=== PATIENT | female | born 1990 | race Caucasian/White ===

== ENCOUNTER → 2021-10-19 15:32 | Outpatient (CLI) | payer OTHER, SELFPAY ==
--- NOTE | ~2021-10-19 | XR_ITS ---
EXAMINATION: XR cervical spine 4-5V DATE: 10/19/2021 15:58 INDICATION: Chronic neck pain. TECHNIQUE: 4 views of cervical spine including upright views were obtained. COMPARISON: None. FINDINGS: Bone alignment is normal. Vertebral body heights and intervertebral disc heights are normal . The facet joints are unremarkable. No central canal stenosis or prevertebral soft tissue swelling. IMPRESSION: 1. No etiology for the patient's symptoms. Reviewed, dictated and finalized at location A. SPORTATION SPECIALIST
== END ==
PROVIDERS: PCP Physician Assistant; Visit Provider Physician Assistant
DX: M54.2 Cervicalgia (principal); G89.29 Other chronic pain
CPT/HCPCS: 72050

== ENCOUNTER 2022-05-04 06:57 | Outpatient (CLI) | payer OTHER, SELFPAY ==
[2022-05-04 07:19] LABS: Basophils Percent Auto 0.5 % (0.2-1.2); Eosinophils Absolute Auto 0.2 K/mm3 (0-0.3); Eosinophils Percent Auto 2.7 % (0-4.4); Hematocrit 39.5 % (37.0-47.0); Hemoglobin 12.6 g/dL (12.0-15.0); Immature Granulocyte Absolute 0.02 K/mm3 (0.00-0.031); Immature Granulocyte Percent A 0.3 % (0-0.5); Lymphocytes Absolute Auto 2.36 K/mm3 (0.9-3.2); Lymphocytes Percent Auto 37.8 % (18.3-44.2); Mean Corpuscular HGB Conc 31.9 g/dl (32-36); Mean Corpuscular Hemoglobin 28.8 pg (26-34); Mean Corpuscular Volume 90.4 fl (80-100); Mean Platelet Volume 9.6 fl (7.4-10.4); Monocytes Absolute Auto 0.4 K/mm3 (0.1-0.6); Monocytes Percent Auto 5.9 % (2.6-8.5); Neutrophils Absolute Auto 3.3 K/mm3 (1.3-6.7); Neutrophils Percent Auto 52.8 % (45.5-73.1); Platelet Count Result 240 k/mm3 (150-375); Red Blood Count 4.37 M/mm3 (4.2-5.4); Red Cell Distribution Width 12.6 % (11.5-14.5); White Blood Count 6.3 K/mm3 (4.5-10.0)
[2022-05-04 07:23] LABS: Alanine Aminotransferase 14 U/L (6-35); Albumin Level 4.4 g/dL (3.5-5.1); Alkaline Phosphatase 68 U/L (38-126); Anion Gap 7 mmol/L (8-16); Aspartate Amino Transferase 19 U/L (14-36); Bilirubin,Total 0.5 mg/dL (0.2-1.3); Blood Urea Nitrogen 7 mg/dL (7-17); Calcium 8.8 mg/dL (8.4-10.2); Carbon Dioxide 26 mmol/L (22-30); Chloride 106 mmol/L (98-107); Cholesterol 180 mg/dL (0-200); Estimated Glomerular Filt Rate > 60; Glucose 92 mg/dL (65-110); HDL Direct 40 mg/dL; Potassium 4.1 mmol/L (3.4-5.0); Sodium 139 mmol/L (137-145); Triglycerides 91 mg/dL (<150)
[2022-05-04 07:34] LABS: LDL Cholesterol Direct 96 mg/dL
[2022-05-04 07:55] LABS: Vitamin D 25 Hydroxy 54.5 ng/mL
== END 2022-05-04 06:58 | disposition home or self-care (01) ==
LOC: ANHLAB 06:59
PROVIDERS: PCP Clinical Nurse Specialist; Visit Provider Clinical Nurse Specialist
DX: Z13.228 Encounter for screening for other metabolic disorders (principal); Z13.220 Encounter for screening for lipoid disorders; K59.00 Constipation, unspecified; E55.9 Vitamin D deficiency, unspecified
CPT/HCPCS: 36415; 80053; 80061; 82306; 84443; 85025

== ENCOUNTER → 2022-05-09 14:42 | Outpatient (CLI) | payer OTHER, SELFPAY ==
--- NOTE | ~2022-05-09 | US_ITS ---
EXAMINATION: US soft tissue head and neck DATE: 05/09/2022 15:04 INDICATION: Lump on left side of neck. Dysphagia. Left neck pain. TECHNIQUE: Multiple grayscale and Doppler ultrasound images of the neck were obtained. COMPARISON: Thyroid ultrasound 10/16/2016 FINDINGS: There are normal lymph nodes in left neck in the patient's area of concern. In the left thy roid isthmus, there is a chronic 10 mm mixed solid and cystic, hypoechoic, wider than tall nodule wit h smooth margin without echogenic foci (TI-RADS TR3). IMPRESSION: 1. Normal lymph nodes in left neck. 2. Thyroid nodule, likely not clinically significant. No follow-up is needed. Reviewed, dictated and finalized at location A.
== END ==
PROVIDERS: PCP Clinical Nurse Specialist; Visit Provider Clinical Nurse Specialist
DX: R22.1 Localized swelling, mass and lump, neck (principal)
CPT/HCPCS: 76536

== ENCOUNTER 2022-05-30 12:32 | Day surgery (SDC) | payer OTHER, SELFPAY ==
[2022-05-12 14:05] VITALS: BMI 26.3
[2022-05-15 14:50] VITALS: BMI 25.9
[2022-05-30 12:50] VITALS: BMI 25.9
[2022-05-30 12:51] VITALS: BP 109/82; PULSE 80; RESP 16; TEMP 36.8; O2SAT 100
--- NOTE | 2022-05-30 13:08 | P.PNAN_ITS ---
Anes - Initial Pre Proc Eval Procedure: Operation Date: 05/30/22 14:15 Proposed Procedures p Diagnostic Colonoscopy - Robb Avalos MD Date/Time: 05/30/22 13:08 Surgeon: Robb Avalos MD Pre Op Diagnosis: Change in Bowel Habits Patient Data Age: 31 Gender: F Height: 1.68 m Weight: 73 kg Last Vital Signs Temp 36.8 C 05/30/22 12:51 Pulse 80 05/30/22 12:51 Resp 16 05/30/22 12:51 BP 109/82 05/30/22 12:51 Pulse Ox 100 05/30/22 12:51 O2 Del Method Room Air 05/30/22 12:51 Allergies Allergy/AdvReac Type Severity Reaction Status Date / Time cat dander Allergy Mild Unknown Verified 05/30/22 12:48 grass pollen-[place], Allergy Mild Unknown Verified 05/30/22 12:48 standard No Known Drug Allergies Allergy Unknown Verified 05/30/22 12:48 Home Medications Medication Instructions Recorded Confirmed Type loratadine 10 mg tablet (Claritin) 10 mg PO DAILY 05/03/22 05/30/22 History valacyclovir 1 gram tablet 2,000 mg PO Q12H #30 tabs 05/04/22 05/30/22 Rx psyllium seed (sugar) oral powder 1 tbsp PO BID 05/10/22 05/30/22 History (Metamucil (sugar) oral powder) acidophilus 100 million 1 cap PO DAILY 05/15/22 05/30/22 History cell-pectin, citrus 10 mg capsule Patient hx anesthesia problems: none Family hx anesthesia problems: none Results Review: All pre-operative results and documents have been reviewed as part of the pre- operative evaluation. 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 Informed Consent: The patient's anesthetic plan and its attendant risks and benefits were discussed with the patient/family/POA. Questions were solicited and answers provided to the satisfaction of the patient/family/POA.
--- NOTE | 2022-05-30 13:26 | WPDHPUPDATE1 ---
History and Physical Update Update Date/Time: 05/30/22 13:26 History and Physical has been reviewed, including an updated exam of the patient. There are NO changes in the patient's condition. Risks, benefits, and alternatives have been discussed and questions answered. Patient agrees to proceed with procedure.
[2022-05-30 13:40] VITALS: BP 94/59; PULSE 88; RESP 18; TEMP 36.6; O2SAT 100
[2022-05-30] MEDS: LACTATED RINGERS 1,000 ML 150 ML IV CONT (13:45)
--- NOTE | 2022-05-30 13:45 | WPDANESPN ---
Anes - Prog Note Post-Op Date/Time: 05/30/22 13:45 Cardiovascular status: normal Respiratory status: normal Airway patency: baseline Mental status: baseline Post-Op hydration status: normal Vital Signs: Last Vital Signs Temp 36.8 C 05/30/22 12:51 Pulse 80 05/30/22 12:51 Resp 16 05/30/22 12:51 BP 109/82 05/30/22 12:51 Pulse Ox 100 05/30/22 12:51 O2 Del Method Room Air 05/30/22 12:51 Pain Score (VAS): 0 Patient Feedback: Patient satisfied with anesthetic care.
[2022-05-30 13:50] VITALS: BP 98/50; PULSE 75; RESP 18; O2SAT 100
[2022-05-30 14:00] VITALS: BP 97/52; PULSE 80; RESP 18; O2SAT 100
== END 2022-05-30 14:07 | disposition home or self-care (01) ==
PROVIDERS: PCP Clinical Nurse Specialist; Visit Provider Internal Medicine Gastroenterology
PROC: 0DJD8ZZ Inspection of Lower Intestinal Tract, Via Natural or Artificial Opening Endoscopic (ICD-10-PCS; CPT 45378; principal; 2022-05-30 14:15)
DX: K59.00 Constipation, unspecified (principal)
CPT/HCPCS: 45378

== ENCOUNTER → 2022-06-26 08:52 | Outpatient (CLI) | payer OTHER, SELFPAY ==
--- NOTE | ~2022-06-26 | CT_ITS ---
EXAMINATION: CT abdomen pelvis w con DATE: 06/26/2022 09:24 INDICATION: Bloating. Change in bowel habits. TECHNIQUE: Computed tomography (CT) of the abdomen and pelvis was performed with 100 cc Omnipaque 350 intravenous contrast. The dose-length product was 479.04 mGy-cm. Automated exposure control and iter ative reconstruction technique were employed. COMPARISON: None. FINDINGS: Lung bases are unremarkable. No significant pleural or pericardial effusion. Heart size nor mal. No significant vascular abnormality. No lymphadenopathy. Small amount of free fluid in the pelvi s. Fatty infiltration of the liver. The spleen, pancreas, adrenal glands and kidneys are unremarkable . Gallbladder is present. Nonobstructive bowel gas pattern. No free air. No acute osseous abnormality . IMPRESSION: 1. No acute abdominal abnormality. Reviewed, dictated and finalized at location B.
== END ==
PROVIDERS: PCP Clinical Nurse Specialist; Visit Provider Nurse Practitioner
DX: K59.00 Constipation, unspecified (principal); R14.0 Abdominal distension (gaseous); R19.8 Other specified symptoms and signs involving the digestive system and abdomen
CPT/HCPCS: 74177; Q9967

== ENCOUNTER → 2022-06-29 15:47 | Outpatient (CLI) | payer OTHER, SELFPAY ==
--- NOTE | ~2022-06-29 | CT_ITS ---
EXAMINATION: CT soft tissue neck w con DATE: 06/29/2022 16:11 INDICATION: Pain in throat. Lymphadenopathy. TECHNIQUE: Computed tomography (CT) of the neck was performed with 75 mL Omnipaque-350 intravenous co ntrast. Automated exposure control and iterative reconstruction technique were employed. The dose-inessa gth product was 373.00 mGy-cm. COMPARISON: Ultrasound 05/09/2022 FINDINGS: There is a 5 mm nodule in left lung upper lobe, likely benign. A calcified right lung nodul e and calcified bilateral hilar lymph nodes are consistent with old granulomatous disease. There are no pathologically enlarged lymph nodes. There is an 8 mm nodule in the thyroid, likely not clinically significant. The pharynx and larynx are normal. There are no pathologically enlarged lymph nodes. Th e mastoid air cells are normal. The paranasal sinuses are clear. There is levocurvature and mild kyph osis of cervical spine. IMPRESSION: 1. No etiology for the patient's symptoms. 2. No lymphadenopathy. Reviewed, dictated and finalized at location A.
== END ==
PROVIDERS: PCP Clinical Nurse Specialist; Visit Provider Otolaryngology
DX: R07.0 Pain in throat (principal); R59.1 Generalized enlarged lymph nodes; K11.20 Sialoadenitis, unspecified
CPT/HCPCS: 70491; Q9967

== ENCOUNTER 2022-10-11 15:09 | Outpatient (CLI) | payer OTHER, SELFPAY ==
[2022-10-11 18:04] LABS: Alanine Aminotransferase 17 U/L (6-35); Albumin Level 4.4 g/dL (3.5-5.1); Alkaline Phosphatase 72 U/L (38-126); Anion Gap 6 mmol/L (8-16); Aspartate Amino Transferase 26 U/L (14-36); Bilirubin,Total 0.3 mg/dL (0.2-1.3); Blood Urea Nitrogen 10 mg/dL (7-17); Calcium 8.6 mg/dL (8.4-10.2); Carbon Dioxide 28 mmol/L (22-30); Chloride 105 mmol/L (98-107); Estimated Glomerular Filt Rate > 60; Glucose 78 mg/dL (65-110); Sodium 139 mmol/L (137-145)
[2022-10-11 18:13] LABS: Rheumatoid Factor < 8.6 IU/ML (<12)
[2022-10-11 19:02] LABS: Erythrocyte Sedimentation Rate 27 mm/hr (0-20)
[2022-10-11 19:55] LABS: Hepatitis B Surface Antigen Negative (Negative)
[2022-10-11 20:01] LABS: HAV RESULT Negative (Negative); Hepatitis B Core IgM Result Negative (Negative)
[2022-10-11 20:20] LABS: Hepatitis C Virus Antibody Reactive (Negative)
[2022-10-14 14:36] LABS: Hepatitis C RNA, Quant PCR <15 IU/mL
[2022-10-15 06:12] LABS: Thyroid Peroxidase Antibodies 4 IU/mL (<9)
[2022-10-16 14:06] LABS: ANA Cascade Screen Negative (Negative)
== END 2022-10-11 15:10 | disposition home or self-care (01) ==
LOC: ANHGOSHLAB 15:10
PROVIDERS: PCP Internal Medicine; Visit Provider Clinical Nurse Specialist
DX: E04.1 Nontoxic single thyroid nodule (principal); R76.8 Other specified abnormal immunological findings in serum; M79.10 Myalgia, unspecified site
CPT/HCPCS: 36415; 80053; 80074; 85652; 86038; 86376; 86430; 87522

== ENCOUNTER → 2022-10-11 15:21 | Outpatient (CLI) | payer OTHER, SELFPAY ==
--- NOTE | ~2022-10-11 | XR_ITS ---
EXAMINATION: XR hip RT min 2V DATE: 10/11/2022 15:33 INDICATION: Right hip pain. TECHNIQUE: 2 views of right hip were obtained. COMPARISON: None. FINDINGS: Bone alignment is normal. No fracture. Right hip joint space is normal. IMPRESSION: 1. Normal right hip. Reviewed, dictated and finalized at location E. ANCE EDUCATION FACULTY LIAISON IMPRESSION: 1. Normal right hip.
== END ==
PROVIDERS: PCP Clinical Nurse Specialist; Visit Provider Clinical Nurse Specialist
DX: M25.551 Pain in right hip (principal)
CPT/HCPCS: 73502

== ENCOUNTER 2022-11-08 13:46 | Outpatient (CLI) | payer OTHER, SELFPAY ==
--- NOTE | ~2022-11-08 | MR_ITS ---
EXAMINATION: MR hip RT wo con DATE: 11/08/2022 15:22 INDICATION: Right hip pain TECHNIQUE: Magnetic resonance imaging (MRI) of the right hip was performed without intravenous contr ast. Sequences included full-field axial PD-weighted FS FSE and T1-weighted FSE, coronal of the pelvi s with PD-weighted FS FSE, small field of view of the right hip with axial PD-weighted FS FSE, sagit candy PD-weighted FS FSE and coronal PD weighted FS FSE. Additional radial T1-weighted FGR oriented ort hogonal to the acetabular rim were obtained for evaluation of the labrum. COMPARISON: None FINDINGS: Bones/labrum/cartilage: Alignment is normal. No fracture, avascular necrosis or pathologic marrow replacing process. Small t ear at the chondral labral junction of the superolateral right acetabular labrum. Suggestion of simil ar tear at the contralateral superolateral acetabular labrum of the left hip which is not diagnostica lly evaluated on the larger [id number] images. Cartilage thickness is relatively preserved but wit h deep fissuring without degenerative subchondral changes at the anterosuperior right acetabulum. Mil d osteoarthritis at the lower lumbar facet joints. Fluid: Symmetric physiologic amount of fluid within both hip joints. Slight asymmetric increased fluid signa l situated between the right greater trochanteric, gluteus medius and minimus tendons and the more carlson perficial gluteus rustam tendons consistent with minimal trochanteric bursitis. Minimal likely physi ologic free fluid in the cul-de-sac. Soft tissues: Normal and symmetric muscle bulk and signal in the pelvis and visualized proximal thighs. The iliopso as, gluteal and proximal hamstring tendons are normal. Limited evaluation of visceral organs of the p kym is unremarkable. 2.5 cm left ovarian cyst/dominant. No pathologically enlarged pelvic/inguinal lymphadenopathy. IMPRESSION: 1. 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 2. Similar small tear at the superolateral left acetabular labrum suggested but not diagnostically ev aluated on the larger [id number] images. 3. Minimal right trochanteric bursitis. Reviewed, dictated and finalized at location A. CUTTER IMPRESSION: 1. Small tear at the chondral labral junction of the superolateral right acetab ular labrum and small region of moderate grade chondral malacia the anterosuper ior acetabulum. 2. Similar small tear at the superolateral left acetabular labrum suggested but not diagnostically evaluated on the larger [id number] images. 3. Minimal right trochanteric bursitis.
== END 2022-11-08 13:47 | disposition home or self-care (01) ==
PROVIDERS: PCP Clinical Nurse Specialist; Visit Provider Clinical Nurse Specialist
DX: M25.551 Pain in right hip (principal); R93.6 Abnormal findings on diagnostic imaging of limbs
CPT/HCPCS: 73721

== ENCOUNTER 2023-01-10 14:00 | Outpatient (RCR) | payer OTHER, SELFPAY ==
--- NOTE | 2022-12-13 17:04 | PTOPEVAL1 ---
Assessment and note entered by Melo Mccarthy, PT, DPT Evaluation Information Assessment Status Evaluation Diagnosis R hip pain Onset March 2022 Subjective Information Pt states she was playing football last summer and it just felt like a tightness. She states since then it feels like a catching sensation and she is unable to run like she used to. She states she just completed 5 weeks of therapy at [facility] but had to stop d/t insurance changing. She states she did not feel a big improvement during her time there, she also states walking has started to cause an increase in pain. Pt rates her pain a 1/ 10 at rest, a 4/10 with walking, and she does not run because of the pain. Pt states she would like to be able to run, jog, play kickball, and walk without pain. Pt has a desk job. Reported Pain Level Pain Score 1: Self Report Assessment PT Clinical Summary Amina presents to therapy today for her initial evaluation with a diagnosis of R hip pain. Imaging reveals 2 small labral tears. Today she demonstrates equal active and passive hip ROM that is equal bilaterally. She demonstrates minor decreases in R hip strength as well as an increase in R hip pain with active and functional motions. Skilled physical therapy therapy services are indicated to progress R hip strength and stability , to limit pain, and to return to baseline function. Plan of Care Interventions Electrical Stimulation,Gait Training,Hot Pack/Cold Pack,Manual Therapy,Neuro Re-education,Patient/ Caregiver Educati,Therapeutic Activities, Therapeutic Exercise PT Services Indicated Yes Treatment Frequency and 2x/wk for 4 wks Duration These treatments will address the objective and functional deficits as defined above. The patient will be advanced safely and appropriately in order for the patient to progress towards his/her prior level of function. Additional exercises will be introduced and as well as a comprehensive home exercise program upon discharge, if needed, ?to ensure carryover of functional gains achieved in the clinic. This treatment plan has been reviewed and agreement upon by the patient.
--- NOTE | 2022-12-22 10:48 | PCPTNOTE ---
Patient called & cancelled scheduled appointment this date due to not feeling well.
--- NOTE | 2023-01-10 14:55 | PTOPPROG ---
Assessment and note entered by Melo Mccarthy, PT, DPT Evaluation Information Assessment Status Progress Diagnosis R hip pain Onset March 2022 Subjective Information Pt state feels like she is getting stronger, but does not feel like she is closer to getting able to run. She states she still have the most pain first things in the morning, and feels best after therapy with lots of movement. Assessment PT Clinical Summary Amina presents to therapy today for her progress report following 8 visits to treat her R hip pain and labral tear. Today she demonstrates increased single leg stability, increase strength karen, and decreased pain with some motions. She continues to have a pinching pain with certain motions that has not improved. Pt has an initial evaluation with an orthopedic doctor next week. It was recommended that she consult with them prior to continuing therapy. Plan of Care Interventions Electrical Stimulation,Gait Training,Hot Pack/Cold Pack,Manual Therapy,Neuro Re-education,Patient/ Caregiver Educati,Therapeutic Activities, Therapeutic Exercise PT Services Indicated Yes Treatment Frequency and pending ortho consult Duration These treatments will address the objective and functional deficits as defined above. The patient will be advanced safely and appropriately in order for the patient to progress towards his/her prior level of function. Additional exercises will be introduced and as well as a comprehensive home exercise program upon discharge, if needed, ?to ensure carryover of functional gains achieved in the clinic. This treatment plan has been reviewed and agreement upon by the patient.
--- NOTE | 2023-02-08 10:33 | PTOPDC ---
Assessment and note entered by Melo Mccarthy, PT, DPT Evaluation Information Assessment Status Discharge - Pt Not Present Diagnosis R hip pain Onset March 2022 Subjective Information Called patient for follow up. She states she is doing well and does not need to continue with therapy. Assessment PT Clinical Summary Amina completed 8 visits of skilled therapy from 12/13/22 to 01/10/23. She will be discharged at this time per patient request. Plan of Care PT Services Indicated No
== END 2023-02-08 10:46 | disposition home or self-care (01) ==
LOC: ANHGOSHPT 14:00
PROVIDERS: PCP Clinical Nurse Specialist; Visit Provider Clinical Nurse Specialist
DX: M25.551 Pain in right hip (principal)
CPT/HCPCS: 97110; 97112; 97140; 97161; 97530